=== PATIENT | male | born 1985 | race Caucasian/White ===

== ENCOUNTER 2024-01-21 18:03 | Emergency (ER) | payer OTHER, SELFPAY ==
[2024-01-21] VITALS (11 sets, daily range): BP systolic 127–174; BP diastolic 73–119; PULSE 43–65; RESP 14–26; TEMP 36.4; O2SAT 95–100
--- NOTE | ~2024-01-21 | XR_ITS ---
EXAMINATION: XR chest 2V Exam Date/Time: 01/21/2024 18:20 CDT HISTORY: cp, mid sternal, started an hour ago Comparison: 07/13/2019. RESULT: Lines, tubes, and devices: None. Lungs and pleura: Slightly low volumes with crowding, otherwise clear. Cardiomediastinal silhouette: Stable. Other: No acute osseous or upper abdominal finding. IMPRESSION: No acute cardiopulmonary process. Reviewed, dictated and finalized at location K.
--- NOTE | ~2024-01-21 | CT_ITS ---
EXAMINATION: CTA chest abdomen pelvis DATE: 01/21/2024 20:02 INDICATION: chest pain into back and abdomen . TECHNIQUE: Computed tomography (CT) of the chest, abdomen, and pelvis was performed with 100 mL Omnip aque-350 intravenous contrast in the arterial phase. Automated exposure control and iterative reconst ruction technique were employed. The dose-length product was 1917.00 mGy-cm. COMPARISON: X-ray chest same date and 07/13/2019; CT abdomen pelvis 11/29/2016. FINDINGS: Examination is limited by considerable motion artifact, worst in the lower chest and abdomen. CHEST: Thoracic aorta: No significant dilation. No dissection. Lung parenchyma and airways: Lungs and airways are clear. Thoracic inlet, axillae and chest wall: Mild symmetric bilateral gynecomastia. No thyroid mass. No ax illary lymphadenopathy. Mediastinum: No mass or lymphadenopathy. Heart and pericardium: Normal heart size. No pericardial effusion. Coronary artery calcifications: Absent. Pleura: No effusion or mass. Thoracic bones: No acute osseous finding in the chest. ABDOMEN/PELVIS: Liver: Normal. Biliary/Gallbladder: Gallbladder is normal. No bile duct dilation. Pancreas: No mass or duct dilation. Spleen: Normal. Adrenals:No mass. Kidneys: No suspicious mass, obstructing stone, or hydronephrosis. Subcentimeter right midpole hypode nsity, likely representing a cyst but partially obscured by motion artifact. GI tract: No small or large bowel dilation. Normal appendix. Diverticulosis without diverticulitis. Mesentery/Peritoneum: No ascites, mass, or free air. Retroperitoneum: No mass Pelvis: Pelvic organs are within normal limits Soft Tissues: Soft tissues and body wall unremarkable. Abdominopelvic bones: No acute osseous finding in the abdomen/pelvis. IMPRESSION: No acute process detected in the chest, abdomen, or pelvis. Reviewed, dictated and finalized at location K.
--- NOTE | 2024-01-21 18:04 | ECG_ITS ---
Measurements Intervals [place] Rate: 68 P: 19 TN: 179 QRS: 56 QRSD: 100 T: 40 QT: 367 QTc: 392 Interpretive Statements SINUS RHYTHM BASELINE WANDER- II, III, AVR, AVF, V1-V3 NORMAL ECG COMPARED TO ECG 07/12/2019 23:06:14 SINUS RHYTHM NOW PRESENT Electronically Signed On 01-21-2024 18:59:01 CDT by Ja Jones D.O.
[2024-01-21 18:34] LABS: Basophils Percent Auto 0.3 % (0.2-1.2); Eosinophils Absolute Auto 0.2 K/mm3 (0-0.3); Eosinophils Percent Auto 1.8 % (0-4.4); Hematocrit 44.2 % (42.0-52.0); Hemoglobin 15.4 g/dL (14.0-18.0); Immature Granulocyte Absolute 0.03 K/mm3 (0.00-0.031); Immature Granulocyte Percent A 0.3 % (0-0.5); Lymphocytes Absolute Auto 2.46 K/mm3 (0.9-3.2); Lymphocytes Percent Auto 24.4 % (18.3-44.2); Mean Corpuscular HGB Conc 34.8 g/dl (32-36); Mean Corpuscular Hemoglobin 29.6 pg (26-34); Mean Corpuscular Volume 84.8 fl (80-100); Mean Platelet Volume 9.8 fl (7.4-10.4); Monocytes Absolute Auto 0.7 K/mm3 (0.1-0.6); Neutrophils Absolute Auto 6.7 K/mm3 (1.3-6.7); Neutrophils Percent Auto 66.2 % (45.5-73.1); Platelet Count Result 229 k/mm3 (150-375); Red Blood Count 5.21 M/mm3 (4.6-6.20); Red Cell Distribution Width 13.6 % (11.5-14.5); White Blood Count 10.1 K/mm3 (4.5-10.0)
[2024-01-21 18:49] LABS: Prothrombin Time 13.3 Seconds (11.1-14.7)
[2024-01-21 18:51] LABS: Alanine Aminotransferase 37 U/L (6-50); Albumin Level 4.7 g/dL (3.5-5.1); Alkaline Phosphatase 90 U/L (38-126); Anion Gap 8 mmol/L (8-16); Aspartate Amino Transferase 29 U/L (17-59); Bilirubin,Total 1.2 mg/dL (0.2-1.3); Blood Urea Nitrogen 15 mg/dL (9-20); Calcium 10.2 mg/dL (8.4-10.2); Carbon Dioxide 23 mmol/L (22-30); Chloride 108 mmol/L (98-107); Estimated CRCL calculation 137 ml/min; Estimated Glomerular Filt Rate > 60; Glucose 110 mg/dL (65-110); Lipase 85 U/L (23-300); Potassium 3.6 mmol/L (3.4-5.0); Sodium 139 mmol/L (137-145)
[2024-01-21 19:02] LABS: Troponin I < 0.012 ng/mL (0.000-0.034)
--- NOTE | 2024-01-21 19:05 | ED.CHESTPAIN ---
HPI - Chest Pain General Chief Complaint: Chest Pain Stated Complaint: chest pain Time Seen by Provider: 01/21/24 19:04 History of Present Illness HPI narrative: Patient is a 38-year-old male with history of diverticular disease here with chest pain and abdominal pain. He states that symptoms have been present for couple of hours. He states he was eating some pizza and the symptoms began shortly after. The pain is located in his lower chest and radiates upwards towards the esophagus and into his back. He notes he has had multiple episodes of emesis. He denies any blood in his vomit that he is aware of. No prior abdominal surgeries. No cardiac history. He states he was feeling his normal self earlier today. No cough, congestion, fever, chills. Related Data Allergies Allergy/AdvReac Type Severity Reaction Status Date / Time No Known Allergies Allergy Verified 11/29/16 20:17 Review of Systems Review of Systems: All systems reviewed & are unremarkable except as noted in HPI and below Exam Narrative: GENERAL: Uncomfortable appearing. Appears to be in pain. Flushed. HEAD: Normocephalic, atraumatic. EYES: PERRLA and EOMI. ENT: Nares clear. Mucous membranes moist. NECK: Supple. CHEST: Clear to auscultation. No respiratory distress. HEART: Regular rate and rhythm. Normal peripheral pulses. ABDOMEN: Soft, nontender, nondistended. EXTREMITIES: Normal range of motion. No edema. SKIN: Warm, dry, no rash. NEURO: No focal deficits. Alert and oriented x3. PSYCH: Normal mood and affect. Course Course Emergency Course: Chart review performed. Patient here with midsternal chest pain. Triage vitals show HTN, otherwise within normal limits. Patient seen evaluated, appears to be uncomfortable, he is having chest pain radiating into his abdomen and back. Given portion of pain will do CTA dissection study. Differentials include gastritis, biliary disease, less likely dissection and ACS. Zofran, morphine, Pepcid, GI cocktail ordered. Lab work and imaging reviewed, no leukocytosis, electrolytes within normal limits, initial troponin negative, normal lipase. CTA negative, pending repeat troponin. Continued pain, carafate and dilaudid ordered. After diluadid patient became drowsy and desaturated, placed on supplemental oxygen and sat upright, saturations improved to the high 90s. Repeat troponin negative. Patient re-evaluated, feeling much better. He has been able to be weaned off of oxygen at this time. Will start patient on Protonix, Carafate and a short course of pain medication. Will refer to GI. Advised close follow-up with PCP. The results of pertinent diagnostic studies and exam findings were discussed. The patient?s provisional diagnosis and plan of care were discussed with the patient and present family. The patient and/or present family expressed understanding of the diagnosis and plan. The nurse was instructed to provide written instructions and appropriate follow-up information. The patient understands their need and responsibility to obtain additional follow-up as instructed. The risks of medications administered and prescribed were discussed with the patient and family present. Vital Signs Vital signs: Vital Signs Temperature 97.6 F 01/21/24 18:14 Pulse Rate 65 01/21/24 18:14 Respiratory Rate 18 01/21/24 18:14 Blood Pressure 159/100 H 01/21/24 18:14 Pulse Oximetry 100 01/21/24 18:14 Oxygen Delivery Room Air 01/21/24 18:14 Temperature 97.6 F 01/21/24 18:14 Pulse Rate 56 L 01/21/24 21:20 Respiratory Rate 26 H 01/21/24 21:20 Blood Pressure 150/93 H 01/21/24 21:20 Pulse Oximetry 97 01/21/24 21:20 Oxygen Delivery Nasal Cannula 01/21/24 20:52 Oxygen Flow Rate 2 01/21/24 20:52 MDM - Chest Pain Lab Data 01/21/24 18:11 01/21/24 18:11 Labs: Lab Results 01/21/24 01/21/24 01/21/24 Range/Units 18:11 20:57 21:06 WBC 10.1 H (4.5-1
[2024-01-21] MEDS: BELLADONNA ALK/PHENOB ELIX 10 ML, MAG HYDROX/ALUMINUM HYD/SIMETH 30 ML, LIDOCAINE HCL 2... PO (19:29)
[2024-01-21] MEDS: ASPIRIN 81 MG CHEWABLE TABLET 324 MG PO (19:30)
[2024-01-21] MEDS: FAMOTIDINE 20 MG/2 ML VIAL 40 MG IV PUSH (19:36)
[2024-01-21] MEDS: ONDANSETRON INJ 4 MG/2 ML VIAL IV PUSH (19:41)
[2024-01-21] MEDS: MORPHINE SULFATE (*CRX) 4 MG/ML INJ IV PUSH (19:42)
[2024-01-21] MEDS: HYDROmorphone HCL INJ (*CRX) 1 MG/ML SYR IV PUSH (20:42)
--- NOTE | 2024-01-21 20:53 | ECG_ITS ---
Measurements Intervals [place] Rate: 53 P: 28 NE: 202 QRS: 42 QRSD: 104 T: 47 QT: 422 QTc: 398 Interpretive Statements SINUS BRADYCARDIA BORDERLINE AV CONDUCTION DELAY DELAYED PRECORDIAL R/S TRANSITION BORDERLINE ECG COMPARED TO ECG 01/21/2024 18:07:41 SINUS BRADYCARDIA NOW PRESENT Electronically Signed On 01-21-2024 21:31:01 CDT by Ja Jones D.O.
[2024-01-21] MEDS: SUCRALFATE SUSP 100 MG/ML 10 ML UDC 1000 MG PO (21:27)
[2024-01-21 21:33] LABS: Troponin I < 0.012 ng/mL (0.000-0.034)
[2024-01-21 21:47] LABS: Influenza A QL RT-PCR Negative (Negative); Influenza B QL RT-PCR Negative (Negative); RSV RNA, RT-PCR Negative (Negative); SARS-CoV-2 RNA PCR Negative (Negative)
== END 2024-01-21 22:19 | disposition home or self-care (01) ==
PROVIDERS: Emergency Provider Student in an Organized Health Care Education/Training Program; PCP Family Medicine
DX: R07.89 Other chest pain (principal); R10.13 Epigastric pain; Z20.822 Contact with and (suspected) exposure to COVID-19; R00.1 Bradycardia, unspecified; R94.31 Abnormal electrocardiogram [ECG] [EKG]
CPT/HCPCS: 36415; 71046; 71275; 74174; 80053; 83690; 84484; 85025; 85610; 85730; 87637; 93005; 96374; 96375; 99284; A9270; J1170; J2270; J2405; Q9967